=== PATIENT | male | born 1935 | race Hispanic/Latino ===

== ENCOUNTER 2017-01-05 08:16 | Outpatient (CLI) | payer MEDICARE, BC | END 2017-01-05 08:17 | LOC: NAVSJIPCSP 08:16 | PROVIDERS: ATTEND Internal Medicine | DX: E78.5 Hyperlipidemia, unspecified (principal); Z79.899 Other long term (current) drug therapy | CPT/HCPCS: 36415; 80061 ==

== ENCOUNTER 2017-04-09 08:24 | Outpatient (CLI) | payer MEDICARE, BC ==
[2017-04-09 13:04] LABS: Cardiac Risk 3.5 (Less than 4.5)
== END 2017-04-09 08:25 ==
LOC: NAVSJIPCSP 08:24
PROVIDERS: ATTEND Internal Medicine
DX: E78.5 Hyperlipidemia, unspecified (principal); Z79.899 Other long term (current) drug therapy
CPT/HCPCS: 36415; 80061

== ENCOUNTER 2017-06-11 08:14 | Outpatient (CLI) | payer MEDICARE, BC ==
[2017-06-11 12:50] LABS: Cardiac Risk 3.3 (Less than 4.5)
== END 2017-06-11 08:15 | disposition home or self-care (01) ==
LOC: NAVSJIPCSP 08:14
PROVIDERS: ATTEND Internal Medicine
DX: E78.5 Hyperlipidemia, unspecified (principal)
CPT/HCPCS: 36415; 80061

== ENCOUNTER 2019-03-24 10:03 | Emergency (ER) | payer MEDICARE, BC ==
[2019-03-24] MEDS ORDERED: Ketorolac Tromethamine 30 MG/ML VIAL ONE (10:29)
--- NOTE | 2019-03-24 10:47 | RAD ---
XR Lumbar Spine 2 Or 3 View History: [Chronic back pain] Comparison: None. Findings: Abnormal narrowing of both hip joints. Mild narrowing of the L5/S1 disc space. Moderate vas cular calcifications. No listhesis. No acute fracture or malalignment. 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
== END 2019-03-24 11:00 | disposition home or self-care (01) ==
LOC: NAV ERS 10:03
DX: M54.42 Lumbago with sciatica, left side (principal); E78.5 Hyperlipidemia, unspecified; I10 Essential (primary) hypertension; Z79.899 Other long term (current) drug therapy
CPT/HCPCS: 72100; 96372; J1885

== ENCOUNTER 2021-10-08 13:34 | Emergency (ER) | payer MEDICARE | END 2021-10-08 14:27 | disposition short-term general hospital (02) | LOC: NAV ERS 13:34 | DX: N50.89 Other specified disorders of the male genital organs (principal); I10 Essential (primary) hypertension; E78.5 Hyperlipidemia, unspecified; E78.00 Pure hypercholesterolemia, unspecified; Z79.899 Other long term (current) drug therapy | CPT/HCPCS: 99284 ==

== ENCOUNTER 2021-11-06 13:31 | Emergency (ER) | payer MEDICARE ==
[2021-11-07 17:12] LABS: SARS-CoV-2 PCR by NAA Not Detected (NotDetected)
== END 2021-11-06 14:10 | disposition home or self-care (01) ==
LOC: NAV ERS 13:31
DX: J06.9 Acute upper respiratory infection, unspecified (principal); Z20.822 Contact with and (suspected) exposure to COVID-19; E78.00 Pure hypercholesterolemia, unspecified; E78.5 Hyperlipidemia, unspecified; I10 Essential (primary) hypertension; Z79.899 Other long term (current) drug therapy
CPT/HCPCS: 99283; U0003; U0005

== ENCOUNTER 2023-06-14 08:19 | Emergency (ER) | payer MEDICARE, OTHER | END 2023-06-14 09:20 | disposition home or self-care (01) | LOC: NAV ERS 08:19 | DX: H81.4 Vertigo of central origin (principal); E78.00 Pure hypercholesterolemia, unspecified; I10 Essential (primary) hypertension; Z79.899 Other long term (current) drug therapy | CPT/HCPCS: 93005 ==